=== PATIENT | male | born 1955 | race Caucasian/White ===

== ENCOUNTER → 2022-08-30 | Outpatient (CLI) | payer MEDICARE | END | disposition home or self-care (01) | LOC: MRI 02:09 | PROVIDERS: ATTEND Specialist | DX: I67.82 Cerebral ischemia (principal); R90.82 White matter disease, unspecified; H90.5 Unspecified sensorineural hearing loss ==

== ENCOUNTER → 2022-11-13 | Day surgery (SDC) | payer MEDICARE ==
[~2022-11-13] VITALS: Ht 198.1 cm; Wt 104.3 kg
[~2022-11-13] MED LIST: COREG25 MG PO; NEURONTIN800 MG PO; ZESTRIL40 MG PO
[2022-11-13 11:34] VITALS: BP 131/87
[2022-11-13 11:49] VITALS: BP 150/88
[2022-11-13 11:56] VITALS: BP 146/92
== END | disposition home or self-care (01) ==
LOC: SDC 11-08 13:15
PROVIDERS: ATTEND Specialist
DX: H83.01 Labyrinthitis, right ear (principal); I10 Essential (primary) hypertension; H90.5 Unspecified sensorineural hearing loss; H81.01 Meniere's disease, right ear; J31.0 Chronic rhinitis; H69.81 Other specified disorders of Eustachian tube, right ear

== ENCOUNTER 2024-10-22 08:18 | Emergency (ER) | payer MEDICARE ==
[~2024-10-22] VITALS: Ht 198.1 cm; Wt 108.9 kg
[2024-10-22] MEDS ORDERED: SODIUM CHLORIDE 0.9% 1,000 ML IV ONE (08:45)
[2024-10-22] MEDS ORDERED: diazePAM 5 MG TAB PO ONE (08:45)
[2024-10-22] MEDS ORDERED: Labetalol Hydrochloride 20 MG/4 ML SYR IV ONE (08:45)
[2024-10-22] MEDS ORDERED: Meclizine Hydrochloride 25 MG TAB PO ONE (08:45)
[2024-10-22 09:02] LABS: BASO % 0.3 % (0.0-1.0); EOS # 0.2 10*3/uL (0.0-0.4); EOS % 2.3 % (1.0-4.0); MEAN CELL VOLUME 89.8 fl (80.0-94.0); MEAN CORPUSCULAR HGB 29.9 pg (27.0-31.0); MEAN CORPUSCULAR HGB CONC 33.3 g/dl (33.0-37.0); MEAN PLATELET VOLUME 9.6 fl (9.6-12.3); MONO # 0.5 10*3/uL (0.1-1.0); MONO % 6.3 % (3.0-9.0); NEUT # 5.9 10*3/uL (2.3-7.9); NEUT % 75.8 % (47.0-73.0); PLATELET COUNT AUTOMATED 152 10*3/uL (130-400); RED BLOOD COUNT 5.01 10*6/uL (4.50-5.90); RED CELL DISTRI WIDTH 14.6 % (0-14.5); WHITE BLOOD COUNT 7.7 10*3/uL (4.8-10.8)
[2024-10-22 09:26] LABS: BUN 18 mg/dl (9-23); CHLORIDE 106 mmol/L (98-107); POTASSIUM 4.1 mmol/L (3.4-5.1)
[2024-10-22] MEDS ORDERED: ANTIVERT25 M2 PO (09:53)
== END 2024-10-22 10:45 | disposition home or self-care (01) ==
LOC: ED 08:18
PROVIDERS: Emergency Medicine
DX: H81.01 Meniere's disease, right ear (principal); I10 Essential (primary) hypertension; E78.5 Hyperlipidemia, unspecified; Z79.899 Other long term (current) drug therapy; Z90.49 Acquired absence of other specified parts of digestive tract

== ENCOUNTER 2024-12-03 15:00 | Emergency (ER) | payer MEDICARE ==
[~2024-12-03] VITALS: Ht 198.1 cm; Wt 108.9 kg
[~2024-12-03 15:00] MED LIST changes: +ANTIVERT25 M2 PO
[2024-12-03] MEDS ORDERED: NAPROSYN500 MG PO (16:03)
== END 2024-12-03 16:07 | disposition home or self-care (01) ==
LOC: ED 15:00
DX: S86.911A Strain of unspecified muscle(s) and tendon(s) at lower leg level, right leg, initial encounter (principal); Z79.899 Other long term (current) drug therapy; Z90.49 Acquired absence of other specified parts of digestive tract; X50.1XXA Overexertion from prolonged static or awkward postures, initial encounter; Y93.89 Activity, other specified; Y92.818 Other transport vehicle as the place of occurrence of the external cause; Y99.8 Other external cause status

== ENCOUNTER → 2024-12-23 | Outpatient (CLI) | payer MEDICARE ==
[~2024-12-23] MED LIST changes: +NAPROSYN500 MG PO
== END | disposition home or self-care (01) ==
LOC: MRI 10:00
PROVIDERS: ATTEND Family Medicine
DX: S83.241A Other tear of medial meniscus, current injury, right knee, initial encounter (principal); M25.461 Effusion, right knee; M71.21 Synovial cyst of popliteal space [Baker], right knee; M25.561 Pain in right knee; M79.89 Other specified soft tissue disorders; R60.0 Localized edema; X58.XXXA Exposure to other specified factors, initial encounter; Y93.89 Activity, other specified; Y92.89 Other specified places as the place of occurrence of the external cause; Y99.8 Other external cause status

== ENCOUNTER → 2025-07-02 | Outpatient (CLI) | payer MEDICARE ==
[2025-07-02 08:21] LABS: MEAN CELL VOLUME 87.8 fl (80.0-94.0); MEAN CORPUSCULAR HGB 28.8 pg (27.0-31.0); MEAN PLATELET VOLUME 9.9 fl (9.6-12.3); NUCLEATED RED BLOOD CELL 0.0 % (0.0-0.0); NUCLEATED RED BLOOD CELL 0.0 10*3/uL (0.0-0.0); PLATELET COUNT AUTOMATED 200.0 10*3/uL (130-400); RED CELL DISTRI WIDTH 14.4 % (0-14.5)
[2025-07-02 08:43] LABS: BUN 20 mg/dl (9-23); CPK 203 U/L (34-171); LDL CHOLESTEROL 113 mg/dL (9-159); SGPT/ALT 27 U/L (5-49)
== END | disposition home or self-care (01) ==
LOC: LAB 07:28
PROVIDERS: ATTEND Family Medicine
DX: I10 Essential (primary) hypertension (principal); E78.00 Pure hypercholesterolemia, unspecified; M17.0 Bilateral primary osteoarthritis of knee

== ENCOUNTER → 2025-07-30 | Outpatient (CLI) | payer MEDICARE ==
[2025-07-30 09:06] LABS: MEAN CELL VOLUME 87.9 fl (80.0-94.0); MEAN CORPUSCULAR HGB 29.8 pg (27.0-31.0); MEAN PLATELET VOLUME 9.1 fl (9.6-12.3); NUCLEATED RED BLOOD CELL 0.0 % (0.0-0.0); NUCLEATED RED BLOOD CELL 0.0 10*3/uL (0.0-0.0); PLATELET COUNT AUTOMATED 183.0 10*3/uL (130-400); RED CELL DISTRI WIDTH 14.1 % (0-14.5)
[2025-07-30 09:21] LABS: ACT PARTIAL THROMBO TIME 28.6 SECONDS (20.0-32.1)
[2025-07-30 09:59] LABS: BUN 19 mg/dl (9-23); CPK 215 U/L (34-171); FREE T4 1.32 ng/dl (0.89-1.76)
[2025-07-30 10:11] LABS: VITAMIN D, 25-HYDROXY 41.7 ng/mL (30-100)
== END | disposition home or self-care (01) ==
LOC: LAB 08:50
PROVIDERS: ATTEND Family Medicine
DX: Z01.812 Encounter for preprocedural laboratory examination (principal); I10 Essential (primary) hypertension; E78.00 Pure hypercholesterolemia, unspecified; E55.9 Vitamin D deficiency, unspecified; I45.10 Unspecified right bundle-branch block; M25.561 Pain in right knee; I82.401 Acute embolism and thrombosis of unspecified deep veins of right lower extremity

== ENCOUNTER → 2025-08-09 | Outpatient (CLI) | payer MEDICARE | END | disposition home or self-care (01) | LOC: CARD 14:12 | PROVIDERS: ATTEND Internal Medicine Cardiovascular Disease | DX: Z01.810 Encounter for preprocedural cardiovascular examination (principal); I08.0 Rheumatic disorders of both mitral and aortic valves ==